=== PATIENT | female | born 1940 | race Caucasian/White ===

== ENCOUNTER 2019-09-12 09:26 | Emergency (ER) | payer MEDICARE, OTHER ==
[2019-09-12] MEDS ORDERED: traMADol 50 MG Tab ONE (11:30)
[2019-09-12] MEDS ORDERED: predniSONE 10 MG Tab ONE (11:30)
[2019-09-12 11:38] VITALS: BP 180/104; PULSE 100
[2019-09-12] MEDS ORDERED: Ketorolac 60 MG/2 ML SDV IM ONE (12:00)
[2019-09-12] MEDS ORDERED: Ketorolac 30 MG/ML SDV ONE (12:11)
--- NOTE | 2019-09-12 12:22 | EDM.PDOC ---
ED HPI GENERAL MEDICAL PROBLEM - General Chief Complaint: General Stated Complaint: LEG PAIN Time Seen by Provider: 09/12/19 11:30 - History of Present Illness INITIAL COMMENTS - FREE TEXT/NARRATIVE: Na presents today for left lower extremity burning discomfort. She states that yesterday morning she awoke and was stiff as usual from her osteoarthritis. She bent over to pet her cat, and experienced a sharp discomfort in her buttock that traveled all the way down to her toes. This proceeded to become more of a burning ache and persisted throughout the day. She did not have any weakness, urinary retention, or previous radicular issues. She tried some Tylenol as well as Aspercreme rubbing on her thigh without much relief. She feels like she did not sleep all night. She finally called her daughter today, and was brought in for evaluation. She denies any genitourinary symptoms. She admits to not drinking as much as usual, but does not have any nausea or intolerance to taking fluids orally. [place] lives by herself [place] [facility] and lost her in 2016 I believe from end- stage dementia. 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 Left Flank Pain Score (Numeric/FACES): 8 - Related Data Allergies Allergy/AdvReac Type Severity Reaction Status Date / Time No Known Allergies Allergy Verified 09/12/19 11:15 Home Meds: Home Meds lisinopriL [Prinivil] 20 mg PO DAILY 04/08/14 [History] Metoprolol Tartrate [Lopressor] 50 mg PO BID 12/02/15 [History] amLODIPine [Norvasc] 10 mg PO DAILY 12/02/15 [History] Past Medical History HEENT History: Reports: None Cardiovascular History: Reports: Hypertension [employer] MANAGER History: Reports: - Past Surgical History HEENT Surgical History: Reports: None Cardiovascular Surgical History: Reports: None Social & Family History - Family History Family Medical History: Noncontributory ED ROS GENERAL - Review of Systems Review Of Systems: Comprehensive ROS is negative, except as noted in HPI. ED EXAM, GENERAL - Physical Exam Exam: See Below Exam Limited By: No Limitations General Appearance: Alert, WD/WN, No Apparent Distress Eye Exam: Bilateral Eye: EOMI Throat/Mouth: Normal Inspection Head: Atraumatic, Normocephalic Neck: Normal Inspection, Non-Tender, Full Range of Motion Respiratory/Chest: No Respiratory Distress, Lungs Clear, Normal Breath Sounds Cardiovascular: Regular Rate, Rhythm, No Gallop, No Murmur, No Rub GI/Abdominal: Normal Bowel Sounds, Soft, Non-Tender, No Mass Back Exam: Normal Inspection, Full Range of Motion. No: CVA Tenderness (R), CVA Tenderness (L), Muscle Spasm, Paraspinal Tenderness, Vertebral Tenderness Extremities: No Pedal Edema, Normal Capillary Refill. No: Xi's Sign Neurological: Alert, Oriented, CN II-XII Intact, Normal Cognition, No Motor/ Sensory Deficits, Other (Lower extremity strength preserved including extensor hallucis longus and equivocal straight leg raise on the left) Psychiatric: Normal Affect, Normal Mood Skin Exam: Warm, Dry Course - Vital Signs Text/Narrative:: Explained treatment options and she is really not interested in further diagnosis. Reviewed the results of her UA and she agrees to take extra fluids today and in fact is making some chicken soup. Discussed treatment with her daughter in detail. Plan for a rather low-dose prednisone burst 30 mg daily for 5 days. As she preferred an injection to start, we provided her with ketorolac 30 mg IM given her last creatinine in March was 0.6 and she denies any gastric issues. Discussed combining Tylenol and tramadol at night to help her to sleep. She was also encouraged to consider low-dose ibuprofen with any breakthrough pain. Discussed follow-up in the clinic this week particularly with any persistent worsening or ongoing symptoms. She is reliable to return with any worsening issues. Last Recorded V/S: Last Vital Signs Temp 98.3 F 09/12/19 11:23 Pulse 100 09/12/19 11:23 Resp 18 09/12/19 11:23 BP 180/104 H 09/12/19 11:23 Pulse Ox 99 09/12/19 11:23 - Orders/Labs/Meds Labs: Laboratory Tests 09/12/19 Range/Units 11:27 Urine Color Yellow Urine Appearance Clear (CLEAR) Urine pH 5.5 (5.0-8.0) Ur Specific [place] 1.025 (1.003-1.030) Urine Protein 30 H (NEGATIVE) mg/dL Urine Glucose (UA) Negative (NEGATIVE) mg/dL Urine Ketones 40 H (NEGATIVE) mg/dL Urine Occult Blood Trace-intact H (NEGATIVE) Urine Nitrite Negative (NEGATIVE) Urine Bilirubin Negative (NEGATIVE) Urine Urobilinogen 0.2 (0.2-1.0) E.U./dL Ur Leukocyte Esterase Trace H (NEGATIVE) Urine RBC 0-5 H /HPF Urine WBC 0-5 H /HPF Ur Squamous Epith Cells Moderate /HPF Urine Bacteria Few /HPF Meds: Medications Discontinued Medications Generic Name Dose Route Start Last Admin Trade Name Jyotsna PRN Reason Stop Dose Admin Ketorolac Tromethamine 30 mg 09/12/19 12:00 09/12/19 12:08 Toradol IM 09/12/19 12:01 30 mg ONETIME ONE Administration Ketorolac Tromethamine Confirm 09/12/19 12:11 Toradol Administered 09/12/19 12:12 Dose 30 mg .ROUTE .STK-MED ONE Departure - Departure Time of Disposition: 12:00 Disposition: Home, Self-Care 01 Clinical Impression: Sciatica Qualifiers: Laterality: left Qualified Code(s): M54.32 - Sciatica, left side - Discharge Information Instructions: Sciatica, [id number] Referrals: Ajith Bowles MD [Primary Care Provider] - Forms: ED Department Discharge Additional Instructions: Discharge home. Toradol 30mg intramuscular injection given in the ER. Prednisone 10mg-30mg daily for 3 days. Tramadol 50mg by mouth 1 tablet every 6 hours as needed. Take Tylenol and Tramadol before bed as needed for the pain. Follow up in the clinic as needed. Sepsis Event Note - Evaluation Sepsis Screening Result: No Definite Risk - Focused Exam Vital Signs: Vital Signs Temp Pulse Resp BP Pulse Ox 09/12/19 11:23 98.3 F 100 18 180/104 H 99 09/12/19 11:07 98.3 F 100 20 180/104 H 99 Date Exam was Performed: 09/12/19 Time Exam was Performed: 12:15
== END 2019-09-12 12:10 | disposition home or self-care (01) ==
LOC: LB.ED 09:26
DX: M54.32 Sciatica, left side (principal); I10 Essential (primary) hypertension; Z79.899 Other long term (current) drug therapy
CPT/HCPCS: 81001; 96372; 99283; A9270-GY; J1885

== ENCOUNTER 2023-10-06 14:35 | Emergency (ER) | payer MEDICARE, OTHER ==
[2023-10-06] MEDS: Diltiazem 25 MG/5 ML SDV IVPUSH ONE (15:26)
[2023-10-06] MEDS: Sodium Chloride 0.9% 1,000 ML IV ONE (15:30)
[2023-10-06 15:34] LABS: BASOPHILS ABSOLUTE AUTO 0.01 K/uL (0.02-0.10); BASOPHILS PERCENT AUTO 0.1 % (0.0-0.5); EOSINOPHILS ABSOLUTE AUTO 0.04 K/uL (0.04-0.40); EOSINOPHILS PERCENT AUTO 0.4 % (1.0-5.0); HEMATOCRIT 39.7 % (37.0-47.0); HEMOGLOBIN 13.2 g/dL (11.5-16.5); LYMPHOCYTES ABSOLUTE AUTO 2.42 K/uL (1.50-4.00); LYMPHOCYTES PERCENT AUTO 26.9 % (20.0-40.0); MEAN CORPUSCULAR HEMOGLOBIN 29.9 pg (27.0-32.0); MEAN CORPUSCULAR HGB CONC 33.2 g/dL (31.0-35.0); MEAN CORPUSCULAR VOLUME 90 fL (76-96); MEAN PLATELET VOLUME 9.7 fL (6.0-10.0); MONOCYTES ABSOLUTE AUTO 1.09 K/uL (0.20-0.80); MONOCYTES PERCENT AUTO 12.1 % (3.0-10.0); NEUTROPHILS ABSOLUTE AUTO 5.43 K/uL (2.00-7.50); NEUTROPHILS PERCENT AUTO 60.5 % (45.0-70.0); PLATELET COUNT,PLT 377 K/uL (150-500); RED BLOOD CELL COUNT 4.42 M/uL (3.80-5.80); RED CELL DISTRIBUTION WIDTH 14.4 % (11.0-16.0)
[2023-10-06 15:52] LABS: A/G RATIO 1.4 (0.8-2.0); ANION GAP 14.2 mmol/L (5.0-15.0); BILIRUBIN TOTAL 0.4 mg/dL (0.0-1.0); BUN/CREATININE RATIO 30.8 (6-25); CALCIUM 9.1 mg/dL (8.5-10.1); CARBON DIOXIDE,CO2 26.7 mmol/L (21.0-32.0); CREATININE 0.65 mg/dL (0.55-1.02); EST CRCL DRUG DOSING (CG) 47.9 mL/min; POTASSIUM,K 3.9 mmol/L (3.5-5.1); PROTEIN TOTAL,TP 6.9 g/dL (6.4-8.2)
[2023-10-06 15:53] LABS: PROTHROMBIN TIME 10.4 sec (9.0-11.5)
[2023-10-06 16:02] LABS: TSH ULTRASENSITIVE 1.868 uIU/mL (0.358-3.740)
[2023-10-06] MEDS: Heparin Sodium 5,000 Units/ML Vial IVPUSH ONE (16:18)
[2023-10-06] MEDS: Heparin Sodium/D5W 25,000 UNITS/500 ML BAG IV SCH (16:19)
[2023-10-06] MEDS: Diltiazem 100 MG in Sodium Chloride 0.9% 100 ML IV SCH (16:43)
[2023-10-06 17:41] VITALS: BP 117/75; PULSE 74
== END 2023-10-06 18:32 ==
LOC: LB.ED 14:35
DX: I21.4 Non-ST elevation (NSTEMI) myocardial infarction (principal); I48.91 Unspecified atrial fibrillation; I10 Essential (primary) hypertension; Z79.899 Other long term (current) drug therapy; Z86.19 Personal history of other infectious and parasitic diseases
CPT/HCPCS: 36415; 51702; 80053; 84443; 84484; 85025; 85610; 85730; 93005; 93010; 96361; 96365; 96366; 96368; 96376; 99285; 99285-25; J1644; J3490; J7030

== ENCOUNTER 2024-03-23 06:05 | Emergency (ER) | payer MEDICARE, OTHER ==
[2024-03-23] MEDS: Sodium Chloride 0.9% 1,000 ML IV SCH (06:15)
[2024-03-23] MEDS ORDERED: Sodium Chloride 0.9% 10 ML Syringe FLUSH PRN (06:28)
[2024-03-23 06:29] LABS: BASOPHILS ABSOLUTE AUTO 0.08 K/uL (0.02-0.10); BASOPHILS PERCENT AUTO 0.8 % (0.0-0.5); EOSINOPHILS ABSOLUTE AUTO 0.19 K/uL (0.04-0.40); EOSINOPHILS PERCENT AUTO 1.9 % (1.0-5.0); HEMATOCRIT 36.7 % (37.0-47.0); HEMOGLOBIN 12.4 g/dL (11.5-16.5); LYMPHOCYTES PERCENT AUTO 54.2 % (20.0-40.0); MEAN CORPUSCULAR HEMOGLOBIN 29.7 pg (27.0-32.0); MEAN CORPUSCULAR HGB CONC 33.8 g/dL (31.0-35.0); MEAN CORPUSCULAR VOLUME 88 fL (76-96); MEAN PLATELET VOLUME 9.9 fL (6.0-10.0); MONOCYTES ABSOLUTE AUTO 1.08 K/uL (0.20-0.80); MONOCYTES PERCENT AUTO 10.8 % (3.0-10.0); NEUTROPHILS ABSOLUTE AUTO 3.21 K/uL (2.00-7.50); NEUTROPHILS PERCENT AUTO 32.3 % (45.0-70.0); PLATELET COUNT,PLT 348 K/uL (150-500); RED BLOOD CELL COUNT 4.17 M/uL (3.80-5.80)
[2024-03-23 06:40] LABS: A/G RATIO 1.2 (0.8-2.0); ALBUMIN 3.9 g/dL (3.4-5.0); ANION GAP 10.6 mmol/L (5.0-15.0); BILIRUBIN TOTAL 0.4 mg/dL (0.0-1.0); BUN/CREATININE RATIO 21.3 (6-25); CALCIUM 9.4 mg/dL (8.5-10.1); CARBON DIOXIDE,CO2 28.9 mmol/L (21.0-32.0); CREATININE 0.61 mg/dL (0.55-1.02); EST CRCL DRUG DOSING (CG) 54.04 mL/min; POTASSIUM,K 3.5 mmol/L (3.5-5.1); PROTEIN TOTAL,TP 7.2 g/dL (6.4-8.2); PTT,PARTIAL THROMBOPLSTIN TIME 23.3 SECONDS (24.4-33.2)
[2024-03-23 06:41] LABS: PROTHROMBIN TIME 10.3 sec (9.0-11.5)
[2024-03-23] MEDS: rOPINIRole 1 MG Tab PO ONE (08:28)
[2024-03-23 09:26] LABS: BASOPHILS ABSOLUTE AUTO 0.08 K/uL (0.02-0.10); BASOPHILS PERCENT AUTO 0.8 % (0.0-0.5); EOSINOPHILS ABSOLUTE AUTO 0.16 K/uL (0.04-0.40); EOSINOPHILS PERCENT AUTO 1.7 % (1.0-5.0); HEMATOCRIT 35.1 % (37.0-47.0); HEMOGLOBIN 11.6 g/dL (11.5-16.5); LYMPHOCYTES ABSOLUTE AUTO 4.49 K/uL (1.50-4.00); LYMPHOCYTES PERCENT AUTO 46.5 % (20.0-40.0); MEAN CORPUSCULAR HEMOGLOBIN 29.5 pg (27.0-32.0); MEAN CORPUSCULAR VOLUME 89 fL (76-96); MEAN PLATELET VOLUME 9.5 fL (6.0-10.0); MONOCYTES ABSOLUTE AUTO 1.17 K/uL (0.20-0.80); MONOCYTES PERCENT AUTO 12.1 % (3.0-10.0); NEUTROPHILS ABSOLUTE AUTO 3.76 K/uL (2.00-7.50); NEUTROPHILS PERCENT AUTO 38.9 % (45.0-70.0); PLATELET COUNT,PLT 323 K/uL (150-500); RED BLOOD CELL COUNT 3.93 M/uL (3.80-5.80); WHITE BLOOD CELL COUNT,WBC 9.7 K/uL (4.0-11.0)
[2024-03-23 09:51] VITALS: BP 148/69; PULSE 76
== END 2024-03-23 09:58 ==
LOC: LB.ED 06:05
DX: K92.2 Gastrointestinal hemorrhage, unspecified (principal); I10 Essential (primary) hypertension; M19.90 Unspecified osteoarthritis, unspecified site; I48.91 Unspecified atrial fibrillation; Z79.02 Long term (current) use of antithrombotics/antiplatelets; Z79.82 Long term (current) use of aspirin; Z79.899 Other long term (current) drug therapy
CPT/HCPCS: 36415; 80053; 85025; 85610; 85730; 96360; 96361; 99285; A0425; A0429; A0888; A9270; J7030

== ENCOUNTER 2025-05-17 13:58 | Emergency (ER) | payer MEDICARE, OTHER ==
[2025-05-17 14:55] LABS: MEAN PLATELET VOLUME 9.4 fL (6.0-10.0); PLATELET COUNT,PLT 266.0 K/uL (150-500); RED BLOOD CELL COUNT 3.02 M/uL (3.80-5.80); RED CELL DISTRIBUTION WIDTH 14.7 % (11.0-16.0); WHITE BLOOD CELL COUNT,WBC 5.5 K/uL (4.0-11.0)
[2025-05-17] MEDS ORDERED: Sodium Chloride 0.9% 10 ML Syringe FLUSH PRN (14:56)
[2025-05-17 15:17] LABS: BLOOD UREA NITROGEN,BUN 16.0 mg/dL (8-26); CARBON DIOXIDE,CO2 29.1 mmol/L (21.0-32.0); CHLORIDE,CL 107.0 mmol/L (98-107); CREATININE 0.48 mg/dL (0.55-1.02); EST CRCL DRUG DOSING (CG) 58.45 mL/min; ESTIMATED GFR 93.0 mL/min (>60); GLUCOSE RANDOM 106.0 mg/dL (74-100); INR 1.0 (1.0-3.5); POTASSIUM,K 4.0 mmol/L (3.5-5.1); SODIUM,NA 142.0 mmol/L (136-145)
[2025-05-17 15:31] LABS: APPEARANCE,URINE CLEAR (CLEAR); GLUCOSE,URINE NEGATIVE (NEGATIVE); OCCULT BLOOD,URINE TRACE-INTACT (NEGATIVE)
[2025-05-17 15:41] LABS: SQUAMOUS EPITHELIAL CELLS,UR NOT SEEN /HPF
[2025-05-17] MEDS: Sodium Chloride 0.9% 10 ML Syringe FLUSH PRN (16:20)
[2025-05-17] MEDS: Iopamidol 612 MG/ML 100 ML Bottle IV SCH (16:24)
[2025-05-17] MEDS: Sodium Chloride 0.9% 50 ML SDV FLUSH ONE (16:24)
[2025-05-17 19:27] VITALS: BP 161/94; PULSE 81
== END 2025-05-17 19:34 ==
LOC: LB.ED 13:58
DX: K92.2 Gastrointestinal hemorrhage, unspecified (principal); D64.9 Anemia, unspecified; I10 Essential (primary) hypertension; I48.91 Unspecified atrial fibrillation; Z79.82 Long term (current) use of aspirin; Z79.899 Other long term (current) drug therapy
CPT/HCPCS: 36415; 74177; 80048; 81001; 85027; 85610; 96360; 96361; 99284-25; C1758; J7030; Q9967

== ENCOUNTER 2025-05-27 09:04 | Inpatient (IN) | payer MEDICARE, OTHER ==
[2025-05-27] MEDS: Diltiazem 180 MG Cap.CD PO SCH (19:34)
[2025-05-27] MEDS: Tuberculin, PPD 5 Units/0.1 ML 1 ML MDV IDERM SCH (19:39)
[2025-05-27] MEDS ORDERED: Sodium Chloride 0.9% 10 ML Syringe FLUSH PRN (19:45)
[2025-05-27] MEDS: Labetalol 100 MG/20 ML MDV IVPUSH ONE ×2 (20:07→20:30)
[2025-05-28 08:34] LABS: BASOPHILS ABSOLUTE AUTO 0.07 K/uL (0.02-0.10); BASOPHILS PERCENT AUTO 1.1 % (0.0-0.5); EOSINOPHILS ABSOLUTE AUTO 0.30 K/uL (0.04-0.40); EOSINOPHILS PERCENT AUTO 4.7 % (1.0-5.0); LYMPHOCYTES ABSOLUTE AUTO 2.49 K/uL (1.50-4.00); LYMPHOCYTES PERCENT AUTO 38.8 % (20.0-40.0); MEAN PLATELET VOLUME 9.2 fL (6.0-10.0); MONOCYTES ABSOLUTE AUTO 0.69 K/uL (0.20-0.80); MONOCYTES PERCENT AUTO 10.8 % (3.0-10.0); NEUTROPHILS ABSOLUTE AUTO 2.86 K/uL (2.00-7.50); NEUTROPHILS PERCENT AUTO 44.6 % (45.0-70.0); PLATELET COUNT,PLT 347 K/uL (150-500); RED BLOOD CELL COUNT 3.44 M/uL (3.80-5.80); RED CELL DISTRIBUTION WIDTH 15.3 % (11.0-16.0); WHITE BLOOD CELL COUNT,WBC 6.4 K/uL (4.0-11.0)
[2025-05-28 08:58] LABS: A/G RATIO 0.9 (0.8-2.0); ALANINE AMINOTRANSFERASE,ALT 41.0 U/L (12-78); ASPARTATE AMNIOTRANSFERASE,AST 25.0 U/L (15-37); BILIRUBIN TOTAL 0.5 mg/dL (0.0-1.0); BLOOD UREA NITROGEN,BUN 11.0 mg/dL (8-26); CARBON DIOXIDE,CO2 25.5 mmol/L (21.0-32.0); CHLORIDE,CL 108.0 mmol/L (98-107); CREATININE 0.49 mg/dL (0.55-1.02); EST CRCL DRUG DOSING (CG) 58.25 mL/min; ESTIMATED GFR 93.0 mL/min (>60); GLUCOSE RANDOM 93.0 mg/dL (74-100); POTASSIUM,K 3.8 mmol/L (3.5-5.1); PROTEIN TOTAL,TP 6.0 g/dL (6.4-8.2); SODIUM,NA 142.0 mmol/L (136-145)
[2025-05-28] MEDS: Potassium Chloride 20 MEQ Tab.ER PO ONE ×2 (11:42→17:02)
[2025-05-28] MEDS: Magnesium Sulfat/D5W 1GM/100ML 1 GM in Premix Bag 1 BAG IV SCH (11:47)
[2025-05-29 05:59] LABS: MEAN PLATELET VOLUME 8.8 fL (6.0-10.0); PLATELET COUNT,PLT 355.0 K/uL (150-500); RED BLOOD CELL COUNT 3.48 M/uL (3.80-5.80); RED CELL DISTRIBUTION WIDTH 15.3 % (11.0-16.0); WHITE BLOOD CELL COUNT,WBC 6.2 K/uL (4.0-11.0)
[2025-05-29 06:17] LABS: BLOOD UREA NITROGEN,BUN 12.0 mg/dL (8-26); CARBON DIOXIDE,CO2 25.2 mmol/L (21.0-32.0); CHLORIDE,CL 107.0 mmol/L (98-107); CREATININE 0.41 mg/dL (0.55-1.02); EST CRCL DRUG DOSING (CG) 69.62 mL/min; ESTIMATED GFR 97.0 mL/min (>60); GLUCOSE RANDOM 93.0 mg/dL (74-100); POTASSIUM,K 4.5 mmol/L (3.5-5.1); SODIUM,NA 138.0 mmol/L (136-145)
[2025-05-30 09:36] LABS: BASOPHILS ABSOLUTE AUTO 0.06 K/uL (0.02-0.10); BASOPHILS PERCENT AUTO 0.9 % (0.0-0.5); EOSINOPHILS ABSOLUTE AUTO 0.30 K/uL (0.04-0.40); EOSINOPHILS PERCENT AUTO 4.6 % (1.0-5.0); LYMPHOCYTES ABSOLUTE AUTO 2.71 K/uL (1.50-4.00); LYMPHOCYTES PERCENT AUTO 41.8 % (20.0-40.0); MEAN PLATELET VOLUME 9.0 fL (6.0-10.0); MONOCYTES ABSOLUTE AUTO 0.58 K/uL (0.20-0.80); MONOCYTES PERCENT AUTO 8.9 % (3.0-10.0); NEUTROPHILS ABSOLUTE AUTO 2.84 K/uL (2.00-7.50); NEUTROPHILS PERCENT AUTO 43.8 % (45.0-70.0); PLATELET COUNT,PLT 395 K/uL (150-500); RED BLOOD CELL COUNT 3.67 M/uL (3.80-5.80); RED CELL DISTRIBUTION WIDTH 15.2 % (11.0-16.0); WHITE BLOOD CELL COUNT,WBC 6.5 K/uL (4.0-11.0)
[2025-05-30 10:15] LABS: BLOOD UREA NITROGEN,BUN 16.0 mg/dL (8-26); CARBON DIOXIDE,CO2 25.3 mmol/L (21.0-32.0); CHLORIDE,CL 105.0 mmol/L (98-107); CREATININE 0.53 mg/dL (0.55-1.02); EST CRCL DRUG DOSING (CG) 54.42 mL/min; ESTIMATED GFR 91.0 mL/min (>60); GLUCOSE RANDOM 139.0 mg/dL (74-100); POTASSIUM,K 4.3 mmol/L (3.5-5.1); SODIUM,NA 138.0 mmol/L (136-145); TSH ULTRASENSITIVE 1.356 uIU/mL (0.358-3.740)
[2025-05-30 11:59] VITALS: BP 101/62; PULSE 89
[2025-06-10] MEDS ORDERED: Tuberculin, PPD 5 Units/0.1 ML 1 ML MDV IDERM SCH (19:00)
== END 2025-05-30 13:02 | DRG 948 ==
LOC: LB.MS 12:05 → UNDOADMIN 12:05 → LB.MS 05-28 10:22 → UNDODISIN 05-30 13:02
PROVIDERS: ADMIT Physician Assistant; ATTEND Physician Assistant
DX: R53.1 Weakness (principal); I48.0 Paroxysmal atrial fibrillation; Z66 Do not resuscitate; I10 Essential (primary) hypertension; M19.90 Unspecified osteoarthritis, unspecified site; F41.9 Anxiety disorder, unspecified; D64.9 Anemia, unspecified; G25.81 Restless legs syndrome; Z95.5 Presence of coronary angioplasty implant and graft; Z95.0 Presence of cardiac pacemaker; Z98.49 Cataract extraction status, unspecified eye; Z79.82 Long term (current) use of aspirin; Z79.899 Other long term (current) drug therapy; Z79.1 Long term (current) use of non-steroidal anti-inflammatories (NSAID); Z98.890 Other specified postprocedural states
CPT/HCPCS: 36415; 80048; 80053; 80162; 83735; 84443; 85025; 85027; 86580; 97162-GP; 99233; 99238; 99305; 99308; 99315; A0425; A9270-GY; J1160; J3475; J7040

== ENCOUNTER 2025-05-27 12:05 | Inpatient (IN) | payer MEDICARE, OTHER | END 2025-05-28 10:22 | disposition critical access hospital (66) | DRG 948 | LOC: LB.MS 12:05 | PROVIDERS: ADMIT Physician Assistant; ATTEND Physician Assistant | DX: R53.1 Weakness (principal); I48.91 Unspecified atrial fibrillation; I10 Essential (primary) hypertension; Z95.5 Presence of coronary angioplasty implant and graft; M19.90 Unspecified osteoarthritis, unspecified site; F41.9 Anxiety disorder, unspecified; E55.9 Vitamin D deficiency, unspecified; Z79.01 Long term (current) use of anticoagulants; Z98.890 Other specified postprocedural states; Z79.82 Long term (current) use of aspirin; Z79.899 Other long term (current) drug therapy; Z98.49 Cataract extraction status, unspecified eye; Z98.891 History of uterine scar from previous surgery | CPT/HCPCS: 99305 ==